=== PATIENT | male | born 1940 | race Caucasian/White ===

== ENCOUNTER 2019-06-21 12:40 | Emergency (ER) | payer OTHER ==
[~2019-06-21] VITALS: Ht 167.6 cm; Wt 86.2 kg
[~2019-06-21 12:40] MED LIST: ANTIBIOTIC O500 U/GM TP; ATORVASTATIN CA40 M1 PO; CREON; CRESTOR10 MG; FLUOXETINE HYDR20 M1 PO; GABAPENTIN800 MG PO; KEFLEX500 M1 PO; MOTRIN800 MG PO; Motrin,Rufen800 MG PO; NEURONTIN400 MG PO; NEXIUM40 MG; NORVASC10 MG PO; VICODIN 5/500 505 MG PO; XANAX1 MG PO
[2019-06-21] MEDS ORDERED: DOXYCYCLINE100 M3 PO (14:42)
== END 2019-06-21 14:36 | disposition home or self-care (01) ==
LOC: ED 12:40
PROVIDERS: Physician Assistant
DX: S80.862A Insect bite (nonvenomous), left lower leg, initial encounter (principal); R21 Rash and other nonspecific skin eruption; M25.511 Pain in right shoulder; M25.512 Pain in left shoulder; Z79.2 Long term (current) use of antibiotics; Z79.899 Other long term (current) drug therapy; W57.XXXA Bitten or stung by nonvenomous insect and other nonvenomous arthropods, initial encounter; Y93.89 Activity, other specified; Y92.89 Other specified places as the place of occurrence of the external cause; Y99.8 Other external cause status